=== PATIENT | female | born 1975 | race African-American/Black ===

== ENCOUNTER 2017-10-18 21:31 | Emergency (ER) | payer SELFPAY ==
[2017-10-18 22:22] LABS: Bilirubin Negative (Negative); Blood, Urine Negative (Negative); Clarity CLOUDY (Clear); Glucose, Urine (Dipstick) Negative (Negative); Leukocyte Negative (Negative); Nitrite Negative (Negative); Protein, Urine (Dipstick) Negative (Neg-Trace); Specific Gravity, Urine 1.026 (1.002-1.036); pH, Urine 7.5 (5.0-9.0)
[2017-10-18 22:24] LABS: Pregnancy Test - Urine (BHCG) Negative (Negative); Pregu Control Background? CLEAR/WHITE (CLR/WHITE); Pregu Control Bar Appear? YES (CONTROL BAR); Specific Gravity 1.026 (1.002-1.036)
--- NOTE | 2017-10-18 23:17 | RAD ---
ACUTE ABDOMINAL SERIES: 10/18/17 PROVIDED CLINICAL HISTORY: Abdominal pain. FINDINGS: Comparison chest radiograph 05/28/16. The cardiac silhouette appears enlarged. The lungs appear clear. No pleural fluid or pneumothorax chandrakant arent. Supine and upright abdominal radiographs demonstrate the nonspecific bowel gas pattern. There is no e vidence for pneumoperitoneum. No radiographically apparent urinary tract calculi. IMPRESSION: No evidence for an acute process. POS: CET
[2017-10-19] MEDS ORDERED: Docusate 100 MG CAP PO SCH (01:00)
[2017-10-19] MEDS ORDERED: Polyethylene Glycol 3350 17 GM Packet PO SCH (01:00)
[2017-10-19 01:07] LABS: #Basophils 0.1 thou/uL (0.0-0.2); #Eosinphils 0.2 thou/uL (0.0-0.7); #Lymphocytes 3.3 thou/uL (1.20-3.40); #Monocytes 0.6 thou/uL (0.11-0.59); #Neutrophils 4.9 thou/uL (1.40-6.50); %Basophils 0.5 % (0.0-1.0); %Eosinophils 2.7 % (0.0-10.0); %Lymphocytes 36.4 % (21.0-51.0); %Monocytes 6.7 % (0.0-10.0); %Neutrophils 53.6 % (42.0-75.0); Hemoglobin 14.2 g/dL (12.0-16.0); Mean Corpuscular Volume 94.1 fl (81.0-99.0); Mean Platelet Volume 7.2 fL (7.4-10.4); Platelet Count 302 thou/uL (130-400); RBC Distribution Width 12.1 % (11.5-14.5); Red Blood Cell (RBC) Count 4.57 mill/uL (4.20-5.40); White Blood Cell (WBC) Count 9.2 thou/uL (4.8-10.8)
[2017-10-19 01:28] LABS: ALT (SGPT) 9 U/L (8-55); AST (SGOT) 10 U/L (5-34); Albumin 3.5 g/dL (3.5-5.0); Alkaline Phosphatase 43 U/L (40-150); Anion Gap 10 mmol/L (10-20); BUN (Urea Nitrogen) 10 mg/dL (7.0-18.7); Bilirubin, Total 0.3 mg/dL (0.2-1.2); Calc. Creatinine Clearance 0 mL/min (70-130); Calcium 8.3 mg/dL (7.8-10.44); Carbon Dioxide 25 mmol/L (22-29); Chloride 106 mmol/L (98-107); Estimated GFR-MDRD Greater than 90; Globulin 1.9 g/dL (2.4-3.5); Glucose 142 mg/dL (70-105); Lipase 14 U/L (8-78); Potassium 3.9 mmol/L (3.5-5.1); Protein, Total 5.4 g/dL (6.0-8.3); Sodium 137 mmol/L (136-145)
== END 2017-10-19 02:00 | disposition home or self-care (01) ==
LOC: ERS 21:31
DX: R10.33 Periumbilical pain (principal); F17.210 Nicotine dependence, cigarettes, uncomplicated
CPT/HCPCS: 36415; 74022; 80053; 81003; 81025; 83690; 85025; 99406